=== PATIENT | male | born 1965 | race Caucasian/White ===

== ENCOUNTER 2020-08-18 18:02 | Emergency (ER) | payer MEDICAID ==
[~2020-08-18] VITALS: Ht 185.4 cm; Wt 113.6 kg
[~2020-08-18 18:02] MED LIST: DOXY100T2 PO
[2020-08-18] MEDS ORDERED: ondansetron/PF 4mg/2ml inj IV ONE (18:15)
[2020-08-18] MEDS ORDERED: fentaNYL/PF 50MCG/1 ML 2ML syringe IV ONE ×2 (18:15→18:50)
[2020-08-18] MEDS ORDERED: etomidate 2mg/ml inj. IV ONE (18:15)
[2020-08-18] MEDS ORDERED: ONDA4TAB6 PO (18:49)
[2020-08-18] MEDS ORDERED: HYDR-3964 PO (18:49)
[2020-08-18] MEDS ORDERED: diazepam inj 5 MG/ML inj. IV ONE (18:50)
[2020-08-18 19:50] VITALS: BP 181/122
== END 2020-08-18 19:52 | disposition home or self-care (01) ==
LOC: ER 18:03
DX: S43.004A Unspecified dislocation of right shoulder joint, initial encounter (principal); M25.511 Pain in right shoulder; Z72.89 Other problems related to lifestyle; Z79.2 Long term (current) use of antibiotics; Z79.899 Other long term (current) drug therapy; W11.XXXA Fall on and from ladder, initial encounter; Y93.89 Activity, other specified; Y92.89 Other specified places as the place of occurrence of the external cause; Y99.8 Other external cause status
CPT/HCPCS: 23650; 73020; 96374; 96375; 99152; 99285; J2405; J3010; J3360

== ENCOUNTER 2020-09-14 06:00 | Emergency (ER) | payer MEDICAID ==
[~2020-09-14] VITALS: Ht 185.4 cm; Wt 113.6 kg
[~2020-09-14 06:00] MED LIST changes: +HYDR-3964 PO; +ONDA4TAB6 PO
[2020-09-14] MEDS ORDERED: ketorolac trometh inj. 60 MG/2 ML VIAL IM ONE (06:30)
[2020-09-14] MEDS ORDERED: fentaNYL/PF 50MCG/1 ML 2ML syringe IV ONE (07:30)
[2020-09-14] MEDS ORDERED: bupivacaine 0.25%/epinephrine 1:200,000 inj (contains preserv. MDV) IJ ONE (07:30)
[2020-09-14] MEDS ORDERED: BUPIVAcaine/PF 2.5 mg/ml (0.25%) 30ml vial IJ ONE (07:30)
--- NOTE | 2020-09-14 07:42 | NUR ---
called pharmacy stated will have med brought down in the next couple minutes.
[2020-09-14] MEDS ORDERED: NAPR-56 PO (07:59)
--- NOTE | 2020-09-14 08:10 | NUR ---
right shoulder sling on pt.
[2020-09-14 08:21] VITALS: BP 149/82
== END 2020-09-14 08:24 | disposition home or self-care (01) ==
LOC: ER 06:01
DX: S43.084A Other dislocation of right shoulder joint, initial encounter (principal); Z72.89 Other problems related to lifestyle; Z79.899 Other long term (current) drug therapy; X58.XXXA Exposure to other specified factors, initial encounter; Y93.89 Activity, other specified; Y92.89 Other specified places as the place of occurrence of the external cause; Y99.8 Other external cause status
CPT/HCPCS: 23650; 73020; 73030; 96372; 96374; 99284; J1885; J3010

== ENCOUNTER 2022-01-16 14:05 | Inpatient (IN) | payer MEDICAID ==
[~2022-01-16] VITALS: Ht 185.4 cm; Wt 113.6 kg
[~2022-01-16 14:05] MED LIST changes: -HYDR-3964 PO
[2022-01-16 15:52] LABS: ALANINE AMINOTRANSFERASE 73 U/L (12-78); ALBUMIN 4.2 G/DL (3.4-5.0); ALKALINE PHOSPHATASE 108 IU/L (46-116); ANION GAP 16 (8-16); ASPARTATE AMINO TRANSFERASE 77 U/L (10-37); BILIRUBIN,TOTAL 1.2 MG/DL (0.1-1.0); BLOOD UREA NITROGEN 21 MG/DL (7-18); BUN/CREATININE RATIO 17.2 (5.4-32.0); CHLORIDE 99 MMOL/L (99-107); CREATININE 1.22 MG/DL (0.60-1.10); GLUCOSE 151 MG/DL (70-104); LIPASE 1276 U/L (73-393); POTASSIUM 3.8 MMOL/L (3.5-5.1); SODIUM 134 MMOL/L (135-145); TOTAL CARBON DIOXIDE 18.9 MMOL/L (24-32); TOTAL PROTEIN 8.6 G/DL (6.4-8.2); eGFR 61 ML/MIN
[2022-01-16 15:58] LABS: BASOPHILS # (AUTO) 0.1 X10'3 (0-0.2); BASOPHILS % (AUTO) 0.4 % (0-1); EOSINOPHILS % (AUTO) 0 % (0-6); HEMATOCRIT 48.6 % (42.0-52.0); HEMOGLOBIN 16.7 g/dl (14.0-17.9); LYMPHOCYTES # (AUTO) 1.3 X10'3 (1.1-4.8); LYMPHOCYTES % (AUTO) 5.3 % (21-51); MEAN CORPUSCULAR HEMOGLOBIN 31.1 PG (27.0-31.0); MEAN CORPUSCULAR HGB CONC 34.4 g/dL (33.0-36.5); MEAN CORPUSCULAR VOLUME 90.2 FL (78-98); MEAN PLATELET VOLUME 7.3 FL (7.4-10.4); MONOCYTES # (AUTO) 1.1 X10'3 (0-0.9); MONOCYTES % (AUTO) 4.5 % (2-12); NEUTROPHILS # (AUTO) 21.5 X10'3 (1.8-7.7); NEUTROPHILS % (AUTO) 89.8 % (42-75); PLATELET COUNT 377 X10'3 (140-440); RED BLOOD COUNT 5.38 X10'6 (4.70-6.10); RED CELL DISTRIBUTION WIDTH 13.1 % (11.5-14.5)
[2022-01-16 15:59] LABS: CALCIUM 9.7 MG/DL (8.5-10.1)
[2022-01-16 20:02] LABS: BASOPHILS # (AUTO) 0.1 X10'3 (0-0.2); BASOPHILS % (AUTO) 0.3 % (0-1); EOSINOPHILS % (AUTO) 0 % (0-6); HEMATOCRIT 50.3 % (42.0-52.0); HEMOGLOBIN 17.4 g/dl (14.0-17.9); LYMPHOCYTES # (AUTO) 1.2 X10'3 (1.1-4.8); MEAN CORPUSCULAR HEMOGLOBIN 31.2 PG (27.0-31.0); MEAN CORPUSCULAR HGB CONC 34.5 g/dL (33.0-36.5); MEAN CORPUSCULAR VOLUME 90.4 FL (78-98); MEAN PLATELET VOLUME 7.1 FL (7.4-10.4); MONOCYTES # (AUTO) 1.1 X10'3 (0-0.9); MONOCYTES % (AUTO) 4.5 % (2-12); NEUTROPHILS # (AUTO) 21.5 X10'3 (1.8-7.7); NEUTROPHILS % (AUTO) 90.2 % (42-75); PLATELET COUNT 365 X10'3 (140-440); RED BLOOD COUNT 5.56 X10'6 (4.70-6.10); RED CELL DISTRIBUTION WIDTH 13.1 % (11.5-14.5); WHITE BLOOD COUNT 23.8 X10'3 (4.5-11.0)
[2022-01-16] MEDS ORDERED: normal saline 1000ML IV soln IV ONE (20:45)
[2022-01-16] MEDS ORDERED: piperacillin/tazo 3.375gm/50ml 50 ML IV ONE (20:45)
[2022-01-16] MEDS ORDERED: ondansetron/PF 4mg/2ml inj IV ONE (20:45)
[2022-01-16] MEDS ORDERED: temazepam 15mg capsule PO PRN (21:00)
[2022-01-16] MEDS ORDERED: diphenhydrAMINE 50 mg/ml inj IV PRN (21:15)
[2022-01-16] MEDS ORDERED: haloperidol lactate 5mg/ml inj IM PRN (21:15)
[2022-01-16] MEDS ORDERED: acetaminophen 650mg rectal suppository RC PRN (21:15)
[2022-01-16] MEDS ORDERED: mag hydrox/Alum hydrox/simeth 30ml oral suspension PO PRN (21:15)
[2022-01-16] MEDS ORDERED: HYDROcodone/acetaminophen 5mg/325mg tablet PO PRN (21:15)
[2022-01-16] MEDS ORDERED: bisacodyl 10mg suppository rectal RC PRN (21:15)
[2022-01-16] MEDS ORDERED: magnesium hydroxide 30ml (MOM) UD suspension PO PRN (21:15)
[2022-01-16] MEDS ORDERED: dextrose 50%-water 50ml dispensing syringe IV PRN (21:15)
[2022-01-16] MEDS ORDERED: ondansetron/PF 4mg/2ml inj IV PRN (21:15)
[2022-01-16] MEDS ORDERED: LORazepam 2 mg/ml vial IV PRN (21:15)
[2022-01-16] MEDS ORDERED: ondansetron 4mg rapidly disintigrating tab PO PRN (21:15)
[2022-01-16] MEDS ORDERED: acetaminophen 325mg tablet PO PRN (21:15)
[2022-01-16] MEDS ORDERED: diphenhydrAMINE 25mg capsule PO PRN (21:15)
[2022-01-16] MEDS ORDERED: HYDROcodone/acetaminophen 10/325mg tab PO PRN (21:15)
[2022-01-16] MEDS ORDERED: morphine 2 MG/ML inj. syringe IV PRN (21:15)
[2022-01-16 21:38] LABS: PHOSPHORUS 4.9 MG/DL (2.3-4.5)
[2022-01-16 21:39] LABS: APTT 37 SECONDS (22-32)
[2022-01-16] MEDS: normal saline 1000ml 1,000 ML IV SCH (21:58)
[2022-01-16] MEDS ORDERED: LISI40TA13 PO (21:59)
[2022-01-16] MEDS ORDERED: AMLO-708 PO (21:59)
[2022-01-16] MEDS ORDERED: ATOR20TA66 PO (21:59)
[2022-01-16 22:00] LABS: AMYLASE 200 U/L (25-115); CHOL/HDL RATIO 3.1 (0.00-4.99); CHOLESTEROL 180 MG/DL (0-200); HDL CHOLESTEROL 58 MG/DL (35-60); LDL CHOLESTEROL 50 MG/DL (50-100); TRIGLYCERIDES 497 MG/DL (20-135)
[2022-01-16 22:02] LABS: ETHANOL < 0.010 GM/DL (0.0-0.010)
[2022-01-16] MEDS: HYDROmorphone inj. 0.5 MG/0.5 ML DISP.SYRIN IV PRN (22:08)
[2022-01-16 22:23] LABS: CLARITY,URINE SLIGHTLY CLOUDY (Clear); COLOR,URINE YELLOW (Yellow); GLUCOSE, URINE NEGATIVE (Neg); KETONES,URINE NEGATIVE (Neg); LEUKOCYTE ESTERASE ,URINE NEGATIVE (Neg); NITRITES, URINE NEGATIVE (Neg); OCCULT BLOOD,URINE NEGATIVE (Neg); PROTEIN,URINE 30 mg/dl (Neg); UROBILINOGEN,URINE 0.2 E.U/dL (0.2-1.0)
[2022-01-16 22:28] LABS: UA COLLECTION TYPE NON-SPECIFIED
[2022-01-16 22:30] LABS: D-DIMER 0.63 MG/L FEU (0-0.50)
[2022-01-16 22:31] LABS: BACTERIA,URINE FEW /HPF (Neg); RBC,URINE 0-2 /HPF (0-2); SQUAMOUS EPITHELIAL CELL,UR FEW /LPF (FEW)
[2022-01-16 22:32] LABS: MUCUS STRANDS FEW /LPF (Neg)
[2022-01-16 22:38] LABS: URINE AMPHETAMINE SCREEN NEGATIVE (Neg); URINE BARBITUATE SCREEN NEGATIVE (Neg); URINE BENZODIAZEPINES SCREEN NEGATIVE (Neg); URINE CANNABINOID SCREEN NEGATIVE (Neg); URINE COCAINE SCREEN NEGATIVE (Neg); URINE METHADONE SCREEN NEGATIVE (Neg); URINE OPIATE SCREEN POSITIVE (Neg); URINE PHENCYCLIDINE SCREEN NEGATIVE (Neg)
[2022-01-17] VITALS (8 sets, daily range): BP systolic 128–152; BP diastolic 74–84
[2022-01-17] MEDS: morphine 2 MG/ML inj. syringe IV PRN ×5 (00:12→22:15)
[2022-01-17] MEDS: normal saline 1000ml 1,000 ML IV SCH ×2 (00:16→20:54)
[2022-01-17] MEDS: HYDROmorphone inj. 0.5 MG/0.5 ML DISP.SYRIN IV PRN ×2 (02:07→06:01)
--- NOTE | 2022-01-17 06:30 | NUR ---
FIRST CONTACT WITH PT, FOUND LOW FOWLERS IN BED. PT AWAITING BED ASSIGNMENT, DENIES PAIN AT THIS TIME. IN NO DISTRESS.
[2022-01-17] MEDS ORDERED: pantoprazole 40MG/NS 100ML BAG 100 ML IV SCH (08:00)
[2022-01-17] MEDS: docusate sod 100mg capsule PO SCH ×2 (08:00→20:32)
[2022-01-17 08:02] LABS: BASOPHILS % (AUTO) 0.2 % (0-1); EOSINOPHILS % (AUTO) 0 % (0-6); HEMATOCRIT 45.4 % (42.0-52.0); HEMOGLOBIN 15.4 g/dl (14.0-17.9); LYMPHOCYTES % (AUTO) 5.5 % (21-51); MEAN CORPUSCULAR HEMOGLOBIN 30.9 PG (27.0-31.0); MEAN CORPUSCULAR HGB CONC 33.9 g/dL (33.0-36.5); MEAN CORPUSCULAR VOLUME 91.3 FL (78-98); MEAN PLATELET VOLUME 7.3 FL (7.4-10.4); MONOCYTES # (AUTO) 1.1 X10'3 (0-0.9); MONOCYTES % (AUTO) 5.7 % (2-12); NEUTROPHILS # (AUTO) 16.8 X10'3 (1.8-7.7); NEUTROPHILS % (AUTO) 88.6 % (42-75); PLATELET COUNT 250 X10'3 (140-440); RED BLOOD COUNT 4.97 X10'6 (4.70-6.10); RED CELL DISTRIBUTION WIDTH 13.6 % (11.5-14.5)
[2022-01-17] MEDS ORDERED: potassium CL 10mEq/100ml bag 100 ML IV PRN (08:05)
[2022-01-17] MEDS ORDERED: potassium Cl 20 mEq SR tablet PO PRN ×2 (08:05)
[2022-01-17] MEDS ORDERED: magnesium Cl slow-release 64mg tablet PO PRN (08:05)
[2022-01-17] MEDS ORDERED: magnesium 4gm in 100ml NS 100 ML IV PRN (08:05)
[2022-01-17 08:26] LABS: ALANINE AMINOTRANSFERASE 46 U/L (12-78); ALBUMIN 3.4 G/DL (3.4-5.0); ALBUMIN/GLOBULIN RATIO 0.9 (1.1-1.5); ALKALINE PHOSPHATASE 80 IU/L (46-116); ANION GAP 10 (8-16); ASPARTATE AMINO TRANSFERASE 46 U/L (10-37); BILIRUBIN,TOTAL 0.9 MG/DL (0.1-1.0); BLOOD UREA NITROGEN 23 MG/DL (7-18); BUN/CREATININE RATIO 20.2 (5.4-32.0); CALCIUM 8.4 MG/DL (8.5-10.1); CHLORIDE 101 MMOL/L (99-107); CREATININE 1.14 MG/DL (0.60-1.10); GLUCOSE 191 MG/DL (70-104); POTASSIUM 4.1 MMOL/L (3.5-5.1); SODIUM 134 MMOL/L (135-145); TOTAL CARBON DIOXIDE 23.2 MMOL/L (24-32); TOTAL PROTEIN 7.2 G/DL (6.4-8.2); eGFR 66 ML/MIN
[2022-01-17] MEDS: amLODIPine 5mg tablet PO SCH (08:36)
[2022-01-17] MEDS: lisinopril 20mg tablet PO SCH (08:36)
[2022-01-17] MEDS: atorvastatin 20mg tablet PO SCH (08:36)
[2022-01-17] MEDS: thiamine 100mg/ml 2ml inj. IV SCH ×2 (08:37→20:31)
[2022-01-17] MEDS: heparin, porcine 5000 units/ml vial SQ SCH ×2 (08:38→20:32)
[2022-01-17] MEDS: pantoprazole 40MG/NS 100ML BAG 100 ML IV SCH ×2 (08:38→22:16)
[2022-01-17] MEDS: piperacillin/tazo 4.5gm/100ml 100 ML IV SCH ×2 (09:12→20:31)
[2022-01-17] MEDS: folic acid 1mg/0.2ml inj IV SCH (09:12)
--- NOTE | 2022-01-17 10:15 | NUR ---
pt speaking with daughter on telephone.
[2022-01-17] MEDS: morphine 4 MG/ML inj SYRINge IV PRN ×2 (10:39→13:25)
--- NOTE | 2022-01-17 11:22 | NUR ---
telephone report to mary lou veliz.
--- NOTE | 2022-01-17 11:30 | NUR ---
Received pt from ER. Pt amb to bed in room 1328B, gait steady. VSS.
--- NOTE | 2022-01-17 16:30 | NUR ---
Report called to Ludmila KWAN, transferred pt and all belongings to room 3018A. VSS.
[2022-01-17] MEDS: K and/or MAG REPLACEMENT MC SCH (20:00)
[2022-01-18 02:00] VITALS: BP 151/78
[2022-01-18] MEDS: morphine 2 MG/ML inj. syringe IV PRN ×3 (02:31→12:37)
[2022-01-18 06:25] LABS: BASOPHILS % (AUTO) 0.2 % (0-1); EOSINOPHILS % (AUTO) 0 % (0-6); HEMATOCRIT 41.1 % (42.0-52.0); HEMOGLOBIN 13.8 g/dl (14.0-17.9); LYMPHOCYTES # (AUTO) 1.1 X10'3 (1.1-4.8); LYMPHOCYTES % (AUTO) 5.1 % (21-51); MEAN CORPUSCULAR HEMOGLOBIN 30.8 PG (27.0-31.0); MEAN CORPUSCULAR HGB CONC 33.5 g/dL (33.0-36.5); MEAN CORPUSCULAR VOLUME 91.9 FL (78-98); MEAN PLATELET VOLUME 7.6 FL (7.4-10.4); MONOCYTES # (AUTO) 1.5 X10'3 (0-0.9); MONOCYTES % (AUTO) 6.9 % (2-12); NEUTROPHILS # (AUTO) 19.6 X10'3 (1.8-7.7); NEUTROPHILS % (AUTO) 87.8 % (42-75); PLATELET COUNT 235 X10'3 (140-440); RED BLOOD COUNT 4.47 X10'6 (4.70-6.10); RED CELL DISTRIBUTION WIDTH 13.8 % (11.5-14.5); WHITE BLOOD COUNT 22.3 X10'3 (4.5-11.0)
[2022-01-18 06:35] LABS: ALANINE AMINOTRANSFERASE 28 U/L (12-78); ALBUMIN 2.7 G/DL (3.4-5.0); ALBUMIN/GLOBULIN RATIO 0.7 (1.1-1.5); ALKALINE PHOSPHATASE 63 IU/L (46-116); ANION GAP 9 (8-16); ASPARTATE AMINO TRANSFERASE 28 U/L (10-37); BILIRUBIN,TOTAL 1.1 MG/DL (0.1-1.0); BLOOD UREA NITROGEN 16 MG/DL (7-18); BUN/CREATININE RATIO 14.8 (5.4-32.0); CALCIUM 8.2 MG/DL (8.5-10.1); CHLORIDE 102 MMOL/L (99-107); CREATININE 1.08 MG/DL (0.60-1.10); GLUCOSE 182 MG/DL (70-104); LIPASE 559 U/L (73-393); PHOSPHORUS 1.9 MG/DL (2.3-4.5); POTASSIUM 4.1 MMOL/L (3.5-5.1); SODIUM 134 MMOL/L (135-145); TOTAL CARBON DIOXIDE 23.3 MMOL/L (24-32); TOTAL PROTEIN 6.7 G/DL (6.4-8.2); eGFR 70 ML/MIN
[2022-01-18] MEDS: folic acid 1mg/0.2ml inj IV SCH (08:00)
[2022-01-18] MEDS: K and/or MAG REPLACEMENT MC SCH ×2 (08:00→20:00)
[2022-01-18] MEDS: docusate sod 100mg capsule PO SCH ×2 (08:55→21:15)
[2022-01-18] MEDS: atorvastatin 20mg tablet PO SCH (08:56)
[2022-01-18] MEDS: lisinopril 20mg tablet PO SCH (08:56)
[2022-01-18] MEDS: amLODIPine 5mg tablet PO SCH (08:56)
[2022-01-18] MEDS: thiamine 100mg/ml 2ml inj. IV SCH ×2 (08:57→21:01)
[2022-01-18] MEDS: piperacillin/tazo 4.5gm/100ml 100 ML IV SCH ×2 (08:57→21:01)
[2022-01-18] MEDS: heparin, porcine 5000 units/ml vial SQ SCH ×2 (08:58→21:09)
[2022-01-18] MEDS: pantoprazole 40MG/NS 100ML BAG 100 ML IV SCH ×2 (12:35→21:41)
[2022-01-18] MEDS: normal saline 1000ml 1,000 ML IV SCH ×3 (12:40→21:42)
[2022-01-18] MEDS ORDERED: glucagon, human recombinant 1mg kit SUBCUT PRN ×2 (14:30)
[2022-01-18] MEDS ORDERED: MESSAGE TO PHARMACY PO ONE ×2 (14:30)
[2022-01-18] MEDS ORDERED: dextrose 50%-water 50ml dispensing syringe IV PRN ×2 (14:30)
[2022-01-18] MEDS ORDERED: insulin Lispro (HumaLOG) vial - multi-dose SQ SCH ×2 (14:30)
[2022-01-18] MEDS ORDERED: DEXTROSE 15 GM of carb/4 tabs (each vial/BOTTLE has 4 tablets) PO PRN ×4 (14:30)
[2022-01-18 18:00] VITALS: BP 142/89
--- NOTE | 2022-01-18 18:55 | NUR ---
Patient in room PCU 3018. I have received report from DEYANIRA KWAN and had the opportunity to ask questions and assume patient care.
[2022-01-18] MEDS ORDERED: insulin glargine (Lantus) pen - multi-dose SQ SCH ×2 (21:00)
[2022-01-18] MEDS: acetaminophen 325mg tablet PO PRN (21:45)
[2022-01-18 22:00] VITALS: BP 148/79
[2022-01-19 02:00] VITALS: BP 142/88
[2022-01-19 06:00] VITALS: BP 160/91
--- NOTE | 2022-01-19 06:14 | NUR ---
Problems reprioritized. Patient report given, questions answered & plan of care reviewed with CYNDEE KWAN.
[2022-01-19 06:17] LABS: BASOPHILS # (AUTO) 0.1 X10'3 (0-0.2); BASOPHILS % (AUTO) 0.3 % (0-1); EOSINOPHILS # (AUTO) 0.1 X10'3 (0-0.9); EOSINOPHILS % (AUTO) 0.3 % (0-6); HEMATOCRIT 37.7 % (42.0-52.0); HEMOGLOBIN 12.6 g/dl (14.0-17.9); LYMPHOCYTES # (AUTO) 1.4 X10'3 (1.1-4.8); LYMPHOCYTES % (AUTO) 8.1 % (21-51); MEAN CORPUSCULAR HEMOGLOBIN 31.1 PG (27.0-31.0); MEAN CORPUSCULAR HGB CONC 33.4 g/dL (33.0-36.5); MEAN PLATELET VOLUME 7.7 FL (7.4-10.4); MONOCYTES # (AUTO) 1.5 X10'3 (0-0.9); MONOCYTES % (AUTO) 8.5 % (2-12); NEUTROPHILS # (AUTO) 14.4 X10'3 (1.8-7.7); NEUTROPHILS % (AUTO) 82.8 % (42-75); PLATELET COUNT 185 X10'3 (140-440); RED BLOOD COUNT 4.06 X10'6 (4.70-6.10); RED CELL DISTRIBUTION WIDTH 13.4 % (11.5-14.5); WHITE BLOOD COUNT 17.4 X10'3 (4.5-11.0)
[2022-01-19 06:28] LABS: ALANINE AMINOTRANSFERASE 20 U/L (12-78); ALBUMIN 2.3 G/DL (3.4-5.0); ALBUMIN/GLOBULIN RATIO 0.5 (1.1-1.5); ALKALINE PHOSPHATASE 61 IU/L (46-116); ANION GAP 3 (8-16); ASPARTATE AMINO TRANSFERASE 24 U/L (10-37); BILIRUBIN,TOTAL 0.9 MG/DL (0.1-1.0); BLOOD UREA NITROGEN 12 MG/DL (7-18); CALCIUM 8.3 MG/DL (8.5-10.1); CHLORIDE 103 MMOL/L (99-107); GLUCOSE 171 MG/DL (70-104); LIPASE 286 U/L (73-393); MAGNESIUM 2.4 MG/DL (1.5-2.4); PHOSPHORUS 1.6 MG/DL (2.3-4.5); POTASSIUM 3.6 MMOL/L (3.5-5.1); SODIUM 134 MMOL/L (135-145); TOTAL CARBON DIOXIDE 27.7 MMOL/L (24-32); TOTAL PROTEIN 6.8 G/DL (6.4-8.2); eGFR 77 ML/MIN
--- NOTE | 2022-01-19 06:52 | NUR ---
Patient in room PCU 3018. I have received report from AQUILES Goncalves and had the opportunity to ask questions and assume patient care.
[2022-01-19] MEDS: K and/or MAG REPLACEMENT MC SCH (08:00)
[2022-01-19] MEDS: acetaminophen 325mg tablet PO PRN (08:28)
[2022-01-19] MEDS: docusate sod 100mg capsule PO SCH (08:29)
[2022-01-19] MEDS: lisinopril 20mg tablet PO SCH (08:29)
[2022-01-19] MEDS: amLODIPine 5mg tablet PO SCH (08:31)
[2022-01-19] MEDS ORDERED: Neutra Phos packet PO SCH (08:50)
[2022-01-19] MEDS: thiamine 100mg/ml 2ml inj. IV SCH (08:57)
[2022-01-19] MEDS: folic acid 1mg/0.2ml inj IV SCH (08:57)
[2022-01-19] MEDS: pantoprazole 40MG/NS 100ML BAG 100 ML IV SCH (08:57)
[2022-01-19] MEDS: heparin, porcine 5000 units/ml vial SQ SCH (08:57)
[2022-01-19] MEDS: atorvastatin 20mg tablet PO SCH (09:47)
[2022-01-19] MEDS: piperacillin/tazo 4.5gm/100ml 100 ML IV SCH (09:49)
[2022-01-19] MEDS ORDERED: HYDR-3965 PO (09:58)
[2022-01-19] MEDS: normal saline 1000ml 1,000 ML IV SCH (10:04)
[2022-01-19 11:44] VITALS: BP 142/74
--- NOTE | 2022-01-19 14:00 | NUR ---
pt stable for DC per MD orders, all DC paperwork reviewed with patient, pt. verbalized understanding, PIV removed, pt tolerated well. All personal belongings sent with pt. Pt wheeled out by nursing staff in wheelchair to personal vehicle.
--- NOTE | 2022-01-19 14:08 | NUR ---
Student Medication Administration: For this medication-pass time frame, all medication were reviewed, dispensed, administered and documented per hospital policy by Mela.
--- NOTE | 2022-01-19 14:08 | NUR ---
Student documentation: I have reviewed and agree with all interventions, assessments performed and documented by Mela.
[2022-01-21] MEDS ORDERED: thiamine 100mg tablet PO SCH (08:00)
[2022-01-21] MEDS ORDERED: folic acid 1mg tablet PO SCH (08:00)
== END 2022-01-19 13:10 | disposition home or self-care (01) | DRG 282 ==
LOC: ER 14:05 → ED HOLD 21:21 → PCU 3S 01-17 17:46
PROVIDERS: ADMIT Family Medicine; ATTEND Family Medicine
DX: K85.20 Alcohol induced acute pancreatitis without necrosis or infection (principal); N17.9 Acute kidney failure, unspecified; D68.9 Coagulation defect, unspecified; K76.0 Fatty (change of) liver, not elsewhere classified; E83.39 Other disorders of phosphorus metabolism; R16.0 Hepatomegaly, not elsewhere classified; E87.1 Hypo-osmolality and hyponatremia; E78.5 Hyperlipidemia, unspecified; E11.9 Type 2 diabetes mellitus without complications; N20.0 Calculus of kidney; N28.1 Cyst of kidney, acquired; E78.00 Pure hypercholesterolemia, unspecified; K42.9 Umbilical hernia without obstruction or gangrene; F17.210 Nicotine dependence, cigarettes, uncomplicated; I10 Essential (primary) hypertension; K40.20 Bilateral inguinal hernia, without obstruction or gangrene, not specified as recurrent; K57.30 Diverticulosis of large intestine without perforation or abscess without bleeding; N39.0 Urinary tract infection, site not specified; F10.20 Alcohol dependence, uncomplicated; Z79.899 Other long term (current) drug therapy
CPT/HCPCS: 36415; 71045; 74176; 80053; 80061; 80305; 80320; 81001; 82150; 82948; 83036; 83605; 83690; 83735; 83880; 84100; 84145; 84443; 84484; 85025; 85379; 85610; 85730; 87040; 87081; 87088; 93005; 99285; C9113; G0378; J1170; J1644; J1815; J2270; J2405; J2543; J3411; J3490; J7030; J7040

== ENCOUNTER 2022-01-24 08:44 | Inpatient (IN) | payer MEDICAID ==
[~2022-01-24] VITALS: Ht 185.4 cm; Wt 110.0 kg
[~2022-01-24 08:44] MED LIST changes: +AMLO-708 PO; +ATOR20TA66 PO; -DOXY100T2 PO; +HYDR-3965 PO; +LISI40TA13 PO; -ONDA4TAB6 PO
[2022-01-24 10:01] LABS: BASOPHILS # (AUTO) 0.1 X10'3 (0-0.2); BASOPHILS % (AUTO) 0.9 % (0-1); EOSINOPHILS # (AUTO) 0.4 X10'3 (0-0.9); EOSINOPHILS % (AUTO) 2.1 % (0-6); HEMATOCRIT 41.2 % (42.0-52.0); HEMOGLOBIN 13.9 g/dl (14.0-17.9); LYMPHOCYTES # (AUTO) 1.7 X10'3 (1.1-4.8); LYMPHOCYTES % (AUTO) 10.2 % (21-51); MEAN CORPUSCULAR HEMOGLOBIN 31.4 PG (27.0-31.0); MEAN CORPUSCULAR HGB CONC 33.7 g/dL (33.0-36.5); MEAN PLATELET VOLUME 7.8 FL (7.4-10.4); MONOCYTES # (AUTO) 1.5 X10'3 (0-0.9); MONOCYTES % (AUTO) 8.8 % (2-12); NEUTROPHILS # (AUTO) 13.1 X10'3 (1.8-7.7); PLATELET COUNT 500 X10'3 (140-440); RED BLOOD COUNT 4.43 X10'6 (4.70-6.10); RED CELL DISTRIBUTION WIDTH 13.9 % (11.5-14.5); WHITE BLOOD COUNT 16.8 X10'3 (4.5-11.0)
[2022-01-24 10:15] LABS: ALANINE AMINOTRANSFERASE 29 U/L (12-78); ALBUMIN 2.7 G/DL (3.4-5.0); ALBUMIN/GLOBULIN RATIO 0.5 (1.1-1.5); ALKALINE PHOSPHATASE 99 IU/L (46-116); ANION GAP 8 (8-16); ASPARTATE AMINO TRANSFERASE 37 U/L (10-37); BILIRUBIN,TOTAL 0.5 MG/DL (0.1-1.0); BLOOD UREA NITROGEN 20 MG/DL (7-18); BUN/CREATININE RATIO 16.9 (5.4-32.0); CALCIUM 9.7 MG/DL (8.5-10.1); CHLORIDE 95 MMOL/L (99-107); CREATININE 1.18 MG/DL (0.60-1.10); GLUCOSE 350 MG/DL (70-104); LIPASE 898 U/L (73-393); POTASSIUM 3.9 MMOL/L (3.5-5.1); SODIUM 131 MMOL/L (135-145); TOTAL CARBON DIOXIDE 27.9 MMOL/L (24-32); TOTAL PROTEIN 8.4 G/DL (6.4-8.2); eGFR 63 ML/MIN
[2022-01-24 10:31] LABS: LARGE PLATELETS FEW; PLATELET ESTIMATE INCREASED; TOTAL CELLS COUNTED 100
[2022-01-24 11:14] LABS: COLOR,URINE YELLOW (Yellow); GLUCOSE, URINE 250 mg/dl (Neg); KETONES,URINE NEGATIVE (Neg); LEUKOCYTE ESTERASE ,URINE NEGATIVE (Neg); NITRITES, URINE NEGATIVE (Neg); OCCULT BLOOD,URINE TRACE-INTACT (Neg); PH,URINE 5.5 (4.8-8.0); PROTEIN,URINE TRACE mg/dl (Neg); UROBILINOGEN,URINE 0.2 E.U/dL (0.2-1.0)
[2022-01-24 11:19] LABS: CLARITY,URINE SLIGHTLY CLOUDY (Clear); UA COLLECTION TYPE CLN CATCH MIDSTREAM
[2022-01-24 11:39] LABS: MUCUS STRANDS MODERATE /LPF (Neg)
[2022-01-24 11:40] LABS: SQUAMOUS EPITHELIAL CELL,UR FEW /LPF (FEW)
[2022-01-24 11:42] LABS: RBC,URINE NONE SEEN /HPF (0-2)
[2022-01-24 11:43] LABS: BACTERIA,URINE 1+ /HPF (Neg)
[2022-01-24 11:44] LABS: AMORPHOUS URATES 1+
[2022-01-24] MEDS ORDERED: ringers solution, lacted 1,000 ML IV ONE (14:30)
[2022-01-24] MEDS ORDERED: iohexol 350MG/ML 100ml bottle IV ONE (14:41)
--- NOTE | 2022-01-24 14:46 | NUR ---
Transport to CT via wheelchair by tech.
[2022-01-24] MEDS ORDERED: magnesium 2GM in 50ml NS 50 ML IV PRN (16:20)
[2022-01-24] MEDS ORDERED: magnesium hydroxide 30ml (MOM) UD suspension PO PRN (16:20)
[2022-01-24] MEDS ORDERED: magnesium 4gm in 100ml NS 100 ML IV PRN (16:20)
[2022-01-24] MEDS: normal saline 1000ml 1,000 ML IV SCH ×2 (16:20→20:42)
[2022-01-24] MEDS ORDERED: acetaminophen 325mg tablet PO PRN (16:20)
[2022-01-24] MEDS ORDERED: morphine 2 MG/ML inj. syringe IV PRN ×2 (16:20)
[2022-01-24] MEDS ORDERED: mag hydrox/Alum hydrox/simeth 30ml oral suspension PO PRN (16:20)
[2022-01-24] MEDS ORDERED: ondansetron/PF 4mg/2ml inj IV PRN (16:20)
[2022-01-24] MEDS ORDERED: potassium CL 10mEq/100ml bag 100 ML IV PRN (16:20)
[2022-01-24] MEDS ORDERED: POTASSIUM BICARB 20meq eff tab 20 MEQ TABLET.EFF PO PRN ×2 (16:20)
[2022-01-24] MEDS ORDERED: magnesium Cl slow-release 64mg tablet PO PRN (16:20)
[2022-01-24 16:43] LABS: MAGNESIUM 2.3 MG/DL (1.5-2.4); POTASSIUM 4.2 MMOL/L (3.5-5.1)
[2022-01-24] MEDS ORDERED: VIT1CAPS46 PO (16:44)
[2022-01-24] MEDS: K and/or MAG REPLACEMENT MC SCH (18:37)
[2022-01-24] MEDS: docusate sod 100mg capsule PO SCH (20:00)
[2022-01-24] MEDS ORDERED: non-formulary drug (Vit C/E/Zn/Coppr/Lutein/Zeaxan (Preservision Areds 2 Softgel) 1 CAP) PO SCH (20:00)
[2022-01-24 20:53] VITALS: BP 158/79
[2022-01-25] VITALS (7 sets, daily range): BP systolic 130–158; BP diastolic 62–81
[2022-01-25 06:09] LABS: BASOPHILS # (AUTO) 0.1 X10'3 (0-0.2); BASOPHILS % (AUTO) 0.6 % (0-1); EOSINOPHILS # (AUTO) 0.4 X10'3 (0-0.9); HEMATOCRIT 38.4 % (42.0-52.0); HEMOGLOBIN 13.2 g/dl (14.0-17.9); LYMPHOCYTES # (AUTO) 1.6 X10'3 (1.1-4.8); LYMPHOCYTES % (AUTO) 12.2 % (21-51); MEAN CORPUSCULAR HGB CONC 34.3 g/dL (33.0-36.5); MEAN CORPUSCULAR VOLUME 90.3 FL (78-98); MEAN PLATELET VOLUME 7.7 FL (7.4-10.4); MONOCYTES # (AUTO) 1.2 X10'3 (0-0.9); MONOCYTES % (AUTO) 9.3 % (2-12); NEUTROPHILS # (AUTO) 10.1 X10'3 (1.8-7.7); NEUTROPHILS % (AUTO) 74.9 % (42-75); PLATELET COUNT 441 X10'3 (140-440); RED BLOOD COUNT 4.25 X10'6 (4.70-6.10); RED CELL DISTRIBUTION WIDTH 13.4 % (11.5-14.5); WHITE BLOOD COUNT 13.4 X10'3 (4.5-11.0)
[2022-01-25 06:24] LABS: ALANINE AMINOTRANSFERASE 33 U/L (12-78); ALBUMIN 2.5 G/DL (3.4-5.0); ALBUMIN/GLOBULIN RATIO 0.5 (1.1-1.5); ALKALINE PHOSPHATASE 84 IU/L (46-116); ANION GAP 5 (8-16); ASPARTATE AMINO TRANSFERASE 47 U/L (10-37); BILIRUBIN,TOTAL 0.4 MG/DL (0.1-1.0); BLOOD UREA NITROGEN 16 MG/DL (7-18); CALCIUM 8.8 MG/DL (8.5-10.1); CHLORIDE 105 MMOL/L (99-107); GLUCOSE 209 MG/DL (70-104); MAGNESIUM 2.3 MG/DL (1.5-2.4); POTASSIUM 4.1 MMOL/L (3.5-5.1); SODIUM 139 MMOL/L (135-145); TOTAL CARBON DIOXIDE 28.7 MMOL/L (24-32); TOTAL PROTEIN 7.3 G/DL (6.4-8.2); eGFR 77 ML/MIN
--- NOTE | 2022-01-25 06:30 | NUR ---
Patient in room PCU 3026. I have received report from tuan barreto and had the opportunity to ask questions and assume patient care.
--- NOTE | 2022-01-25 06:35 | NUR ---
Problems reprioritized. Patient report given, questions answered & plan of care reviewed with AQUILES Sales.
--- NOTE | 2022-01-25 07:11 | NUR ---
DM consult: Per EMR pt with prediabetes and recently taken off of Metformin. Current A1c is 6.4%. DM education not warranted at this time. Will continue to follow. Addendum: 01/25/22 at [address] Amended: Links added.
[2022-01-25] MEDS: atorvastatin 20mg tablet PO SCH (07:44)
[2022-01-25] MEDS: docusate sod 100mg capsule PO SCH ×2 (07:44→19:08)
[2022-01-25] MEDS: lisinopril 20mg tablet PO SCH (07:46)
[2022-01-25] MEDS: amLODIPine 5mg tablet PO SCH (07:47)
[2022-01-25] MEDS: enoxaparin 40mg/0.4ml syringe SUBCUT SCH (07:50)
[2022-01-25] MEDS: K and/or MAG REPLACEMENT MC SCH ×2 (07:51→19:12)
[2022-01-25] MEDS: normal saline 1000ml 1,000 ML IV SCH ×2 (07:51→19:11)
--- NOTE | 2022-01-25 18:18 | NUR ---
Problems reprioritized. Patient report given, questions answered & plan of care reviewed with PEDRO LUIS KWAN.
[2022-01-26 02:00] VITALS: BP 149/72
--- NOTE | 2022-01-26 06:12 | NUR ---
Problems reprioritized. Patient report given, questions answered & plan of care reviewed with AQUILES Hair.
[2022-01-26 06:19] LABS: BASOPHILS # (AUTO) 0.1 X10'3 (0-0.2); BASOPHILS % (AUTO) 0.6 % (0-1); EOSINOPHILS # (AUTO) 0.4 X10'3 (0-0.9); EOSINOPHILS % (AUTO) 3.1 % (0-6); HEMATOCRIT 37.6 % (42.0-52.0); HEMOGLOBIN 12.6 g/dl (14.0-17.9); LYMPHOCYTES # (AUTO) 1.8 X10'3 (1.1-4.8); LYMPHOCYTES % (AUTO) 14.5 % (21-51); MEAN CORPUSCULAR HEMOGLOBIN 30.5 PG (27.0-31.0); MEAN CORPUSCULAR HGB CONC 33.4 g/dL (33.0-36.5); MEAN CORPUSCULAR VOLUME 91.1 FL (78-98); MEAN PLATELET VOLUME 7.6 FL (7.4-10.4); MONOCYTES # (AUTO) 1.1 X10'3 (0-0.9); MONOCYTES % (AUTO) 8.3 % (2-12); NEUTROPHILS # (AUTO) 9.3 X10'3 (1.8-7.7); NEUTROPHILS % (AUTO) 73.5 % (42-75); PLATELET COUNT 452 X10'3 (140-440); RED BLOOD COUNT 4.13 X10'6 (4.70-6.10); RED CELL DISTRIBUTION WIDTH 13.6 % (11.5-14.5); WHITE BLOOD COUNT 12.6 X10'3 (4.5-11.0)
[2022-01-26 06:46] LABS: ALANINE AMINOTRANSFERASE 38 U/L (12-78); ALBUMIN 2.5 G/DL (3.4-5.0); ALBUMIN/GLOBULIN RATIO 0.5 (1.1-1.5); ALKALINE PHOSPHATASE 80 IU/L (46-116); ANION GAP 9 (8-16); ASPARTATE AMINO TRANSFERASE 48 U/L (10-37); BILIRUBIN,TOTAL 0.3 MG/DL (0.1-1.0); BLOOD UREA NITROGEN 8 MG/DL (7-18); BUN/CREATININE RATIO 9.2 (5.4-32.0); CALCIUM 8.7 MG/DL (8.5-10.1); CHLORIDE 103 MMOL/L (99-107); CREATININE 0.87 MG/DL (0.60-1.10); GLUCOSE 175 MG/DL (70-104); MAGNESIUM 2.3 MG/DL (1.5-2.4); POTASSIUM 3.6 MMOL/L (3.5-5.1); SODIUM 139 MMOL/L (135-145); TOTAL CARBON DIOXIDE 26.8 MMOL/L (24-32); TOTAL PROTEIN 7.3 G/DL (6.4-8.2); eGFR 90 ML/MIN
[2022-01-26 07:11] VITALS: BP 150/80
[2022-01-26] MEDS: K and/or MAG REPLACEMENT MC SCH (07:36)
[2022-01-26] MEDS: docusate sod 100mg capsule PO SCH (07:36)
[2022-01-26] MEDS: lisinopril 20mg tablet PO SCH (07:43)
[2022-01-26] MEDS: atorvastatin 20mg tablet PO SCH (07:43)
[2022-01-26] MEDS: amLODIPine 5mg tablet PO SCH (07:43)
[2022-01-26] MEDS: enoxaparin 40mg/0.4ml syringe SUBCUT SCH (07:44)
[2022-01-26] MEDS: normal saline 1000ml 1,000 ML IV SCH (07:49)
[2022-01-26] MEDS ORDERED: TRAM50TA2 PO (10:42)
[2022-01-26 11:00] VITALS: BP 136/75
--- NOTE | 2022-01-26 15:14 | NUR ---
PT DISCHARGED IN STABLE CONDITION. LEFT FACILITY IN PRIVATE VEHICLE WITH PARENTS. IV DC CANULA INTACT. FOLLOW UP INSTRUCTIONS GIVEN, ALL QUESTIONS ANSWERED. ALL BELONGINGS IN HAND. Addendum: 01/26/22 at 1515 by Laxmi Holland RN Amended: Links added.
== END 2022-01-26 14:55 | disposition home or self-care (01) | DRG 282 ==
LOC: ER 08:44 → ED HOLD 16:22 → PCU 3S 20:30
PROVIDERS: ADMIT Family Medicine; ATTEND Family Medicine
PROC: BW211ZZ Computerized Tomography (CT Scan) of Abdomen and Pelvis using Low Osmolar Contrast (ICD-10-PCS; principal; 2022-01-24)
DX: K85.91 Acute pancreatitis with uninfected necrosis, unspecified (principal); D72.829 Elevated white blood cell count, unspecified; E78.00 Pure hypercholesterolemia, unspecified; K86.1 Other chronic pancreatitis; R73.9 Hyperglycemia, unspecified; I10 Essential (primary) hypertension; Z79.899 Other long term (current) drug therapy
CPT/HCPCS: 36415; 74177; 80053; 81001; 83690; 83735; 84132; 85007; 85025; 87081; 87088; 96360; 96361; 99285; G0378; J1650; J3490; J7030; J7120; Q9967